=== PATIENT | male | born 2005 | race Caucasian/White ===

== ENCOUNTER 2023-06-28 13:52 | Outpatient (RCR) | payer OTHER, SELFPAY ==
--- NOTE | 2023-06-28 14:49 | HP.PTEVAL_ITS ---
Patient's Visit Information Visit Information Visit Information: LAUREL CALHOUN is a 18 year old M referred to Physical Therapy by Dr. Juan Manuel Bhatia MD with a diagnosis of Chronic R knee pain. Date of Evaluation: 06/28/23 Physical Therapist: Rosendo Jackson, DPT, OCS, CSCS Visit Plan Frequency: 2x /Week Plan: 2x/week for 4-6 weeks for, 1. rollout and stretch HS 2. teach hip and core strength HEP to eventually do at [facility] 3. ensure progression of running(pt to do 9 minutes at 6.0 mph pace 06/29and progress 2 minutes every day as long as not painful. should be near 20 minutes by his return if all goes well.) Subjective Subjective: 7 weeks ago went on a run and it bothered him a little bit r knee, went to do cool down and it was unbearable pain. Ran easy 4 mile. Is a cross country and track deya. Cool down was a mile. Never had pain prior. Runs on his own. Is in online classes. Since then has slowly gotten better. Doctor thought it might be HS tendonitis. Rest has helped, no running for last 7 weeks. Doing stuff around house but no workouts. Does lifting with running. Resting from that. No pain in last week. Sleep is OK. Hobbies: running and collect sports cards. Basic ADLS, no problems. In mid distance track 1600, and was at 4:24 Pain R lat HS at knee: Pain Intensity (Out of 10): 0 Pain Intensity Range: 0 and 8 Objective Objective: Walks normal, steps normal, jogging 7 min at 5.0 to 6.3 mph today without gait deviations or any pain. Steps double easily today, heel adn toe walking and marching easily. HS 90 90 test is -25 but no pain. quaads and piriformis are good flexibiliity stone. patellas move well and no pain No tenderness in knee joint, HS tendons, patella or ligaments today. reflexes 2/3 patella and achilles Sensation LE WNL to gross light touch. strength hips 4/5 with opposite IR. abd and ext 4-/5, knee flexion and extension 5/5 ankles 4+/5. No pain today. - bounce home, - disco, - patellar grind. - anterior drawer, - post sag. Balance/Special Test Scores Lower Extremity Functional Score: 50 Goals Goal 1:: run 25 minutes without pain Goal Time Frame: 4-6 Weeks Goal 2:: I appropr HEP for HS stretch and hip/core strength to avoid future problems. Goal Time Frame: 4-6 Weeks Goal 3:: Pt feel 100% back to normal Goal Time Frame: 4-6 Weeks Goal 4:: LEFS 80 Goal Time Frame: 4-6 Weeks Rehabilitation Potential Physical Therapy Diagnosis: R knee pain resolved? Hs tendonopathy? Effecting function as his activity is down. Rehabilitation Potential: Excellent Anticipated Interventions Patient/Client Instruction: Educate patient on: Condition and Plan of Care For the Purpose of:: To decrease pain, To increase ROM, To improve nutrient delivery to tissue, To improve muscle performance and motor function, To increase tolerance to activity/condition/position and To improve gait and locomotor functions Therapeutic Exercise to Include: Strength training, Balance training, Flexibilty training and Gait and locomotor training For the Purpose of:: To decrease pain, To increase ROM, To improve nutrient delivery to tissue, To improve muscle performance and motor function, To incre ase tolerance to activity/condition/position and To improve gait and locomotor functions Manual Therapy Techniques to Include: Soft tissue mobilization For the Purpose of:: To decrease pain, To increase ROM and To improve nutrient delivery to tissue Text: Thank you for the opportunity to evaluate your patient. For Medicare and Medicare HMO plans, please review the plan of care and approve it. It will need to be FAXED BACK to us at [phone] for Medicare purposes. For Medicare only, by signing this I certify the plan of care. Please let me know if there are questions or concerns regarding this plan of care. Physician Signature: ____Date:
--- NOTE | 2023-08-22 11:39 | HP.PT.NRP ---
Patient Information Patient Information: LAUREL MOORE was seen in my office for initial evaluation on 06/28/23. The following Plan of Care was established for this patient: POC Established Initial Frequency: 2x /Week Anticipated Interventions Patient/Client Instruction: Educate patient on: Condition and Plan of Care For the Purpose of:: To decrease pain, To increase ROM, To improve nutrient delivery to tissue, To improve muscle performance and motor function, To increase tolerance to activity/condition/position and To improve gait and locomotor functions Therapeutic Exercise to Include: Strength training, Balance training, Flexibilty training and Gait and locomotor training For the Purpose of:: To decrease pain, To increase ROM, To improve nutrient delivery to tissue, To improve muscle performance and motor function, To increase tolerance to activity/condition/position and To improve gait and locomotor functions Manual Therapy Techniques to Include: Soft tissue mobilization For the Purpose of:: To decrease pain, To increase ROM and To improve nutrient delivery to tissue Last Seen Last Seen: This patient was last seen in our office 06/28/23. Pertinent comments regarding their Physical therapy will appear below: Pt seen for IE and POC established. It has been over 6 weeks without further attendance and I will discontinue at this time. At this point I will be discontinuing this patient from physical therapy. I would be happy to see this patient again in the future if found appropriate by the physician. Thank you! Rosendo Jackson, DPT, OCS, CSCS Balance/Gait/Functional tests Balance/Special Test Scores Lower Extremity Functional Score: 50
== END 2023-06-28 19:00 | disposition home or self-care (01) ==
LOC: PT 13:52
PROVIDERS: PCP Pediatrics; Referring Provider Pediatrics; Visit Provider Pediatrics
DX: M25.561 Pain in right knee (principal); G89.29 Other chronic pain
CPT/HCPCS: 97161